=== PATIENT | male | born 1945 | race Caucasian/White ===

== ENCOUNTER 2017-06-01 09:44 | Inpatient (IN) | payer OTHER ==
[~2017-06-01] VITALS: Ht 188 cm; Wt 106.6 kg
--- NOTE | ~2017-06-01 | HC ---
[facility] [place] [address] [place] [address] CONSULTATION Name: VIRI ADEN Room #: 421-P [facility] IN M.R.#: [id number] Admission: 06/01/17 Attend Phys: Zay Vela Discharge: Date of : 47 Report #: [id number] THIS REPORT FOR: //name// CC: Felipe Da Silva DATE OF SERVICE: 06/01/2017 ATTENDING PHYSICIAN: Zay Vela MD CONSULTING PHYSICIAN: Micheal Da Silva MD REASON FOR CONSULTATION: Abdominal pain. HISTORY OF PRESENT ILLNESS: This is a reportedly otherwise healthy 72-year-old male patient who has been transferred from [facility] to [facility] with acute sigmoid diverticulitis with perforation. The patient states that his pain started last night after eating a "poor diet." His last bowel movement was 2 days ago and he has passed no flatus since that time. He was seen in the [facility] where he was found to have leukocytosis and CT of the abdomen and pelvis showed changes consistent with acute sigmoid diverticulitis with a microperforation and a small amount of pneumoperitoneum. There was no evidence for inflammatory mass or focal fluid collection/abscess. The patient was transferred to [facility] thereafter. I have been asked to see the patient for further evaluation and treatment. He reports fever that just began after his transfer here. Denies nausea or vomiting. PAST MEDICAL HISTORY: Hypertension and gastroesophageal reflux. The patient also has COPD and osteoarthritis. PAST SURGICAL HISTORY: Denies. MEDICATIONS: Include Prilosec and vitamins. ALLERGIES: IV CONTRAST. FAMILY HISTORY: Reviewed and noncontributory to this hospitalization. SOCIAL HISTORY: The patient denies any use of tobacco or illicit drugs. He drinks champagne occasionally. He works as a braga. REVIEW OF SYSTEMS: As per history of present illness. GENERAL: The patient reports fever. Denies chills. Denies unintentional weight loss. [facility] [address] [place] [address] CONSULTATION Name: VIRI ADEN Room #: 421-P [facility] IN M.R.#: [id number] Admission: 06/01/17 Attend Phys: Zay Vela Discharge: Date of : 47 Report #: [id number] HEENT: Denies changes in taste, vision, hearing, or smell. RESPIRATORY: Denies shortness of breath or asthma. CARDIOVASCULAR: Denies chest pain or palpitations. GASTROINTESTINAL: As per history of present illness. He underwent a recent colonoscopy approximately 3 weeks ago during which time he underwent a polypectomy. He had no symptoms immediately after having undergone this procedure. Denies bright red blood per rectum. GENITOURINARY: Denies dysuria, urgency, or increased urinary frequency, but notes decreased urine output. MUSCULOSKELETAL: Denies myalgia, has a history of osteoarthritis. NEUROLOGIC: Denies headaches, numbness or tingling. PSYCHIATRIC: Denies depression, anxiety or suicidal ideations. SKIN AND INTEGUMENTARY: Denies any skin lesions, rashes, or moles. ENDOCRINE: Denies polydipsia, polyuria, heat or cold intolerance. HEMATOLOGIC: Denies easy bleeding, bruising or anemia. All other review of systems is negative. PHYSICAL EXAMINATION: VITAL SIGNS: Temperature 100.2, blood pressure 116/59, pulse 88, respirations 17. Height 6 feet 2 inches, and weight 235 pounds. GENERAL: This is a well-developed, well-nourished 72-year-old male patient in no acute distress. HEENT: Atraumatic, normocephalic with moist mucosal membranes. Oropharynx is clear. He has no scleral icterus. NECK: Supple, no appreciable lymphadenopathy. Trachea is midline. CHEST: Clear bilaterally. No crackles or wheezes. CARDIOVASCULAR: Regular rate and rhythm, S1, S2. ABDOMEN: Soft, but tender to palpation, greatest in the lower abdomen. He has mild voluntary guarding, but no rebound, no palpable masses, no appreciable hernias, no surgical scars. GENITOURINARY: Normal external male genitalia. EXTREMITIES: No clubbing, cyanosis or edema. NEUROLOGIC: Cranial nerves 2-12 grossly intact. PSYCHIATRIC: Normal mood and affect. SKIN AND INTEGUMENTARY: No acute inflammatory changes, rashes or lesions are present. LABORATORY DATA: The patient's white blood cell count was nearly 23 at [facility]. This was redrawn at [facility] showing a white blood cell count 25.3, hemoglobin 15.1, hematocrit 44.6 and platelets 188. His comprehensive metabolic profile shows sodium 138, potassium 4.0, chloride 101, CO2 28, BUN 18, creatinine 1.2 and glucose 98. Liver function tests are entirely within normal limits. Lactate was mildly elevated at 2.1. TSH was in the normal range of 1.618. [facility] [address] [place] [address] CONSULTATION Name: VIRI ADEN Room #: 421-P [facility] IN M.R.#: [id number] Admission: 06/01/17 Attend Phys: Zay Vela Discharge: Date of : 47 Report #: [id number] RADIOLOGIC STUDIES: CT of the abdomen and pelvis findings from [facility] are as noted above. IMPRESSION AND PLAN: This is a 72-year-old male patient with a history of hypertension, osteoarthritis and gastroesophageal reflux as well as chronic obstructive pulmonary disease who now has acute sigmoid diverticulitis with microperforation. We discussed the pathophysiology and natural history of different stages of acute sigmoid diverticulitis including simple diverticulitis and complicated diverticulitis. We discussed the indications for surgery with simple diverticulitis (diverticulitis requiring antibiotic therapy on 2 separate episodes) and the indication for surgery with complicated diverticulitis, which includes any patient with a microperforation/perforation, abscess, or free perforation. Regarding complicated diverticulitis, reasons for immediate operation would include free perforation with sepsis or failure to improve. If an abscess is present, drainage would be indicated. In this patient with a microperforation, we will plan to rest his bowel, treat with IV fluids and IV antibiotics, and I will follow along closely with serial abdominal exams as well as labs and x-rays as necessary. He will need a repeat CT scan in the next 3-5 days. Should the patient resolve his acute diverticulitis, he would benefit from an elective sigmoid colectomy as a single stage procedure. We briefly discussed the operation including its risks, benefits and expectations. The patient expressed understanding. Greater than 60 minutes were spent reviewing the patient's chart, interviewing and examining the patient, and holding the detailed discussion as documented above. The patient expressed understanding of the plan. I sincerely appreciate the opportunity to participate in the care of this patient and will leave further recommendations and orders in the electronic medical record as appropriate. Thank you very much. <ELECTRONICALLY SIGNED> By: Micheal Da Silva MD, FACS 06/02/17 [id number] Micheal Da Silva MD, FACS /nt
[2017-06-01 11:33] VITALS: BP 131/77
[2017-06-01] MEDS ORDERED: PRILOSEC 20 MG20 MG PO (13:48)
[2017-06-01] MEDS ORDERED: VITAMIN D1000 UNI1 PO (13:49)
[2017-06-01] MEDS ORDERED: VITAMIN B-12500 MCG PO (13:49)
[2017-06-01 14:50] LABS: HEMATOCRIT 44.6 % (42.0-52.0); HEMOGLOBIN 15.1 gm/dL (14.0-18.0); MCHC 33.9 g/dL (28.0-37.0); MCV 91.4 fL (80.0-100.0); RBC 4.88 mil/uL (4.50-6.00); RDW 13.9 % (10.5-14.5); WBC 25.3 thou/uL (4.0-11.0)
[2017-06-01 15:05] LABS: ALBUMIN 3.6 g/dL (3.4-5.0); CALCIUM 8.7 mg/dL (8.5-10.1); CREATININE 1.2 mg/dL (0.7-1.3); TOTAL BILIRUBIN 0.6 mg/dL (<0.1-1.0)
[2017-06-01 15:33] VITALS: BP 116/59
[2017-06-01 20:00] VITALS: BP 110/60
[2017-06-01 23:55] VITALS: BP 108/58
[2017-06-02 02:05] LABS: GLYCOHEMOGLOBIN (HGB A1C) 5.1 % (4.8-5.6)
[2017-06-02 04:30] VITALS: BP 107/64
[2017-06-02 05:54] LABS: ALBUMIN 2.8 g/dL (3.4-5.0); CALCIUM 8.2 mg/dL (8.5-10.1); CREATININE 1.1 mg/dL (0.7-1.3); MAGNESIUM 1.7 mg/dL (1.8-2.4); POTASSIUM 3.6 mmol/L (3.5-5.1)
[2017-06-02 07:35] LABS: HEMATOCRIT 40.1 % (42.0-52.0); HEMOGLOBIN 13.3 gm/dL (14.0-18.0); MCH 30.6 pg (26.0-34.0); MCHC 33.2 g/dL (28.0-37.0); MCV 92.2 fL (80.0-100.0); RBC 4.35 mil/uL (4.50-6.00); RDW 14.5 % (10.5-14.5); WBC 18.9 thou/uL (4.0-11.0)
[2017-06-02 07:39] LABS: MANUAL DIFF YES
[2017-06-02 08:30] VITALS: BP 107/61
[2017-06-02] MEDS ORDERED: FINASTERIDE5 MG PO (08:34)
[2017-06-02 08:48] LABS: ABSOLUTE NEUTROPHILS 16.3 thou/uL (1.4-8.2); PLATELET COUNT 157 thou/uL (150-400); PLATELET ESTIMATE NORMAL; TOTAL CELL COUNT 100
[2017-06-02 17:20] VITALS: BP 120/63
[2017-06-02 20:00] VITALS: BP 125/62
[2017-06-03 05:37] VITALS: BP 122/63
[2017-06-03 06:41] LABS: HEMATOCRIT 38.8 % (42.0-52.0); HEMOGLOBIN 12.7 gm/dL (14.0-18.0); MCH 30.3 pg (26.0-34.0); MCHC 32.8 g/dL (28.0-37.0); MCV 92.4 fL (80.0-100.0); RBC 4.2 mil/uL (4.50-6.00); RDW 14.2 % (10.5-14.5); WBC 15.3 thou/uL (4.0-11.0)
[2017-06-03 08:01] VITALS: BP 101/54
[2017-06-03 16:50] VITALS: BP 132/71
[2017-06-03 20:00] VITALS: BP 133/68
[2017-06-04 05:48] VITALS: BP 119/66
[2017-06-04 08:00] VITALS: BP 134/76
[2017-06-04 16:00] VITALS: BP 144/77
[2017-06-04 20:50] VITALS: BP 120/74
[2017-06-05 03:30] VITALS: BP 91/60
[2017-06-05 08:01] VITALS: BP 121/54
[2017-06-05 15:51] VITALS: BP 137/71
[2017-06-05 19:58] VITALS: BP 152/73
[2017-06-06 03:56] VITALS: BP 142/64
[2017-06-06 08:32] VITALS: BP 133/108
[2017-06-06 10:18] LABS: HEMATOCRIT 37.9 % (42.0-52.0); HEMOGLOBIN 12.9 gm/dL (14.0-18.0); RBC 4.16 mil/uL (4.50-6.00); RDW 14.2 % (10.5-14.5); WBC 8.8 thou/uL (4.0-11.0)
[2017-06-06 15:47] VITALS: BP 133/80
[2017-06-06 20:00] VITALS: BP 149/77
[2017-06-07 04:30] VITALS: BP 131/82
[2017-06-07 05:24] LABS: HEMATOCRIT 34.7 % (42.0-52.0); HEMOGLOBIN 11.8 gm/dL (14.0-18.0); MCH 30.9 pg (26.0-34.0); MCV 90.9 fL (80.0-100.0); RBC 3.82 mil/uL (4.50-6.00); RDW 14.1 % (10.5-14.5)
[2017-06-07 07:25] VITALS: BP 142/76
[2017-06-07 16:02] VITALS: BP 121/65
[2017-06-07 19:00] VITALS: BP 138/88
[2017-06-08 00:53] VITALS: BP 142/84
[2017-06-08 03:06] VITALS: BP 157/84
[2017-06-08 07:51] VITALS: BP 143/86
[2017-06-08 16:46] VITALS: BP 151/77
[2017-06-08 20:00] VITALS: BP 140/62
[2017-06-09 04:30] VITALS: BP 124/85
[2017-06-09 07:57] LABS: BASOPHILS 0.6 % (0.0-2.0); EOSINOPHILS 3.9 % (0.0-3.0); HEMATOCRIT 39.9 % (42.0-52.0); HEMOGLOBIN 13.1 gm/dL (14.0-18.0); LYMPHOCYTES 15.1 % (24.0-44.0); MCH 30.1 pg (26.0-34.0); MCV 91.2 fL (80.0-100.0); MONOCYTES 7.3 % (1.0-8.0); PLATELET COUNT 253 thou/uL (150-400); POLYS 73.1 % (36.0-66.0); RBC 4.37 mil/uL (4.50-6.00); RDW 14.2 % (10.5-14.5); WBC 8.3 thou/uL (4.0-11.0)
[2017-06-09 08:00] VITALS: BP 139/76
[2017-06-09 08:11] LABS: MANUAL DIFF NO
[2017-06-09 08:12] LABS: CALCIUM 9.1 mg/dL (8.5-10.1); CREATININE 1.3 mg/dL (0.7-1.3); MAGNESIUM 1.7 mg/dL (1.8-2.4); POTASSIUM 3.4 mmol/L (3.5-5.1)
[2017-06-09 16:00] VITALS: BP 144/86
[2017-06-09 20:27] VITALS: BP 112/76
[2017-06-10 03:21] VITALS: BP 140/78
[2017-06-10 06:16] LABS: ABSOLUTE NEUTROPHILS 5.1 thou/uL (1.4-8.2); BASOPHILS 0.6 % (0.0-2.0); HEMATOCRIT 39.6 % (42.0-52.0); HEMOGLOBIN 13.2 gm/dL (14.0-18.0); LYMPHOCYTES 20.2 % (24.0-44.0); MCH 30.5 pg (26.0-34.0); MCHC 33.4 g/dL (28.0-37.0); MCV 91.3 fL (80.0-100.0); MONOCYTES 7.7 % (1.0-8.0); PLATELET COUNT 272 thou/uL (150-400); POLYS 67.5 % (36.0-66.0); RBC 4.34 mil/uL (4.50-6.00); RDW 14.5 % (10.5-14.5); WBC 7.5 thou/uL (4.0-11.0)
[2017-06-10 06:26] LABS: MANUAL DIFF NO
[2017-06-10 06:27] LABS: CALCIUM 9.3 mg/dL (8.5-10.1); CREATININE 1.3 mg/dL (0.7-1.3); MAGNESIUM 1.9 mg/dL (1.8-2.4); POTASSIUM 3.7 mmol/L (3.5-5.1)
[2017-06-10 08:00] VITALS: BP 135/88
[2017-06-10 16:15] VITALS: BP 143/84
[2017-06-10 20:05] VITALS: BP 152/90
[2017-06-11 04:53] VITALS: BP 144/91
[2017-06-11 08:00] VITALS: BP 120/86
[2017-06-11] MEDS ORDERED: FLOMAX0.4 MG PO (08:22)
[2017-06-11] MEDS ORDERED: AUGMENTIN 875875 MG PO (08:22)
[2017-06-11] MEDS ORDERED: MAGOX 400400 MG PO (08:22)
[2017-06-11] MEDS ORDERED: COLACE100 MG PO (08:22)
[2017-06-11] MEDS ORDERED: MIRALAX17 GM PO (08:27)
[2017-06-11 10:58] VITALS: BP 120/86
[2017-06-11] MEDS ORDERED: HYDROCODONE-AP1 EAC6 PO (11:26)
== END 2017-06-11 11:55 | disposition home or self-care (01) | DRG 392 ==
LOC: 4E 09:44
PROVIDERS: Hospitalist; Internal Medicine; Surgery
PROC: 02HV33Z Insertion of Infusion Device into Superior Vena Cava, Percutaneous Approach (ICD-10-PCS; principal; 2017-06-05)
DX: K57.20 Diverticulitis of large intestine with perforation and abscess without bleeding (principal); E44.0 Moderate protein-calorie malnutrition; I10 Essential (primary) hypertension; K21.9 Gastro-esophageal reflux disease without esophagitis; J44.9 Chronic obstructive pulmonary disease, unspecified; K66.8 Other specified disorders of peritoneum; M19.90 Unspecified osteoarthritis, unspecified site; R73.9 Hyperglycemia, unspecified; R33.9 Retention of urine, unspecified; K59.00 Constipation, unspecified; N40.0 Benign prostatic hyperplasia without lower urinary tract symptoms; Z68.30 Body mass index [BMI] 30.0-30.9, adult; Z87.891 Personal history of nicotine dependence; Z79.899 Other long term (current) drug therapy; Z91.041 Radiographic dye allergy status
CPT/HCPCS: 10183; 10783; 27000